=== PATIENT | female | born 1975 | race Caucasian/White ===

== ENCOUNTER 2021-12-17 14:16 | Emergency (ER) | payer BC, OTHER ==
[~2021-12-17] VITALS: Ht 160 cm; Wt 58.5 kg
[2021-12-17] MEDS ORDERED: ALBU8.5H8 INH (15:30)
[2021-12-17 15:45] VITALS: BP 114/70
--- NOTE | 2021-12-17 15:45 | NUR ---
Patient discharged to home in stable condition. Written and verbal after care instructions given. Patient verbalizes understanding of instructions. Stressed follow up or return to ER for worsening s/s.
== END 2021-12-17 15:46 | disposition home or self-care (01) ==
LOC: ER 14:16
DX: R06.00 Dyspnea, unspecified (principal)
CPT/HCPCS: 71045; A4663